=== PATIENT | female | born 1990 | race Caucasian/White ===

== ENCOUNTER 2019-02-21 14:06 | Emergency (ER) | payer SELFPAY ==
[~2019-02-21] VITALS: Wt 59.0 kg
--- NOTE | 2019-02-21 17:13 | ERD ---
ER Documentation Chief Complaint Chief Complaint R KNEE PAIN FROM KNEE CAP POPPING OUT LAST NIGHT AND RELOCATED, NO DEFORM HPI 28-year-old female presents with right knee pain after feeling it sublux today. 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 Patient was able to reduce subluxation by herself. Started when she was lying down and went to a standing position. ROS All systems reviewed and are negative except as per history of present illness. Medications Home Meds Reported Medications [none] No Conflict Check 04/10/13 [None] No Conflict Check 06/05/12 Allergies Allergies: Uncoded Allergies: NONE (Allergy, 04/10/13) PMhx/Soc Medical and Surgical Hx: pt denies Surgical Hx History of Surgery: No Anesthesia Reaction: No Hx Neurological Disorder: No Hx Respiratory Disorders: No Hx Cardiac Disorders: No Hx Psychiatric Problems: No Hx Miscellaneous Medical Probl: Yes (Mariluz-Danlos syndrome) Hx Alcohol Use: No Hx Substance Use: No Hx Tobacco Use: No Smoking Status: Never smoker FmHx Family History: No diabetes, No coronary disease, No other Physical Exam Vitals Vital Signs Date Temp Pulse Resp B/P (MAP) Pulse Ox O2 O2 Flow FiO2 Time Delivery Rate 02/21/19 98.0 72 18 128/70 98 14:10 (89) Physical Exam Const: No acute distress Head: Atraumatic Eyes: Normal Conjunctiva ENT: Normal External Ears, Nose and Mouth. Neck: Full range of motion. No meningismus. Resp: Clear to auscultation bilaterally Cardio: Regular rate and rhythm, no murmurs Abd: Soft, non tender, non distended. Normal bowel sounds Skin: No petechiae or rashes Back: No midline or flank tenderness Ext: No cyanosis, or edema mild tenderness in the right peripatellar area. No effusion, deformities. No calf swelling or Homans sign. Neur: Awake and alert Psych: Normal Mood and Affect Procedures/MDM X-ray right knee 4V with patella interpreted by me: Bones: No fracture Joints: No dislocation Foreign body: None impression-normal right knee with patella x-ray She presents with signs and symptoms consistent with a right patella subl uxation. There is no current signs or symptoms of septic arthritis, fracture, dislocation, ischemia or deficits. Patella is currently in anatomic position. Patient was placed in a right knee immobilizer. Patient will be discharged home with recommendations for primary care follow-up and orthopedic evaluation for persistent pain. Should return for fevers, redness, new worsening symptoms. Departure Diagnosis: Primary Impression: Patellar subluxation Encounter type: initial encounter Laterality: right Qualified Codes: S83.001A - Unspecified subluxation of right patella, initial encounter Additional Impression: Knee injury Encounter type: initial encounter Laterality: right Qualified Codes: S89.91XA - Unspecified injury of right lower leg, initial encounter Condition: Stable Patient Instructions: Patellar Dislocation / Subluxation Additional Instructions: X-ray read as normal. Recheck with primary doctor orthopedist for further evaluation for persistent pain. Recommend knee sleeve with patellar support. EDWARDO BOYCE MD Feb 21, 2019 17:13
== END 2019-02-21 17:25 | disposition home or self-care (01) ==
LOC: FTE 14:06
DX: S83.001A Unspecified subluxation of right patella, initial encounter (principal); X58.XXXA Exposure to other specified factors, initial encounter; Y92.9 Unspecified place or not applicable
CPT/HCPCS: 73564